=== PATIENT | male | born 1965 | race Caucasian/White ===

== ENCOUNTER → 2016-12-30 | Outpatient (CLI) | payer OTHER ==
[~2016-12-30] MED LIST: SSDCR50
--- NOTE | 2016-12-30 16:18 | DIAGNOSTIC IMAGING REPORT ---
R HEEL MIN 2 VIEWS CLINICAL HISTORY: Right heel pain. COMPARISON STUDY: None. FINDINGS: No fracture or dislocation within the right calcaneus. Small plantar heel spur. Soft tissues are unremarkable. No radiopaque foreign bodies. IMPRESSION: Small plantar heel spur. Otherwise, unremarkable calcaneus. Electronically signed by: Dagoberto Vo M.D. 12/30/2016 4:16 PM Dictated Date/Time: 12/30/2016 4:15 PM
== END | disposition home or self-care (01) ==
LOC: C.RADPV 15:56
PROVIDERS: ATTEND Family Medicine Adult Medicine
DX: M79.671 Pain in right foot (principal)